=== PATIENT | female | born 1940 | race Caucasian/White ===

== ENCOUNTER 2017-03-04 13:35 | Inpatient (IN) ==
[2017-03-04 14:18] LABS: Basophils % 0.3 %; Eosinophils # 0.1 K/mcL (0.0-0.6); Hematocrit 27.6 % (35.3-44.9); Immature Granulocytes % 0.5 % (0-4); Lymphocytes # 1.6 K/mcL (0.6-4.6); Lymphocytes % 25.7 %; Mean Corpuscular HGB Conc 26.4 g/dL (31.6-35.5); Mean Corpuscular Hemoglobin 17.6 pg (28.0-33.3); Mean Corpuscular Volume 66.5 fL (83.0-100.0); Mean Platelet Volume 10.4 fL (9.4-12.4); Monocytes # 0.4 K/mcL (0.0-1.3); Monocytes % 7.1 %; Neutrophils # 4.1 K/mcL (1.6-8.9); Platelet Count 267 K/mcL (140-400); Red Blood Count 4.15 M/mcL (3.82-4.97); Red Cell Distribution Width 17.6 % (11.5-14.5); Segmented Neutrophils % 65.4 %
[2017-03-04 14:25] LABS: BUN/Creatinine Ratio 11 (6-26); Blood Urea Nitrogen 9 mg/dL (7-20); Calcium 9.6 mg/dL (8.6-10.8); Carbon Dioxide 28 mEq/L (19-29); Chloride 107 mEq/L (98-109); Glucose 106 mg/dL (70-99); Osmolality,Calculated 291 (280-300); Potassium 4.2 mEq/L (3.5-4.5); Sodium 141 mEq/L (136-145); eGFR For African Americans > 60 (> 60); eGFR For Non-African Americans > 60 (> 60)
[2017-03-04 14:33] LABS: Hemoglobin 7.3 g/dL (11.5-15.4)
[2017-03-04] MEDS ORDERED: Dexamethasone 4 MG/ML VIAL IVP ONE (15:28)
[2017-03-04] MEDS ORDERED: Azithromycin 500 MG in D5% in Water 250 ML IVPB ONE (15:28)
[2017-03-04] MEDS ORDERED: Ipratropium/Albuterol Neb 3 ML IH ONE (15:28)
--- NOTE | 2017-03-04 15:31 | Emergency Department Note ---
Disposition Clinical Impression: Acute exacerbation of chronic obstructive airways disease Community acquired pneumonia Qualifiers: Laterality: unspecified laterality Qualified Code(s): J18.9 - Pneumonia, unspecified organism Anemia Qualifiers: Anemia type: other cause Other causes of anemia: other cause, not classified Qualified Code(s): D64.89 - Other specified anemias GI bleed Qualifiers: GI bleed type/associated pathology: unspecified gastrointestinal hemorrhage type Qualified Code(s): K92.2 - Gastrointestinal hemorrhage, unspecified Disposition: Admitted As Inpatient Condition: Fair Referrals: NONE,PCP [Primary Care Provider] - Forms: ED Satisfaction Letter SOB HPI - General Chief Complaint: ED Shortness of Breath/Dyspnea Stated Complaint: SOB Time Seen by Provider: 03/04/17 14:57 Source: patient, family Limitations: no limitations Nursing Notes Reviewed: Yes Vital Signs Reviewed: Yes - History of Present Illness Presents with shortness of breath which is long-standing but worse last 1-1/2 weeks and is constant and is worse with exertion and she does have an associated cough productive of yellow sputum. No chest pain, back pain, abdominal pain. Does have lower extremity edema. No pain or numbness. Does have some sneezing. She denies history of heart failure. Social history: She is a smoker, is here with her daughter - Related Data Home Medications Medication Instructions Recorded Confirmed Acetaminophen [Tylenol] 500 mg PO Q6H PRN 03/04/17 03/04/17 Albuterol Neb [Proventil Neb] 2.5 mg IH Q6H PRN 03/04/17 03/04/17 Albuterol Sulfate [Proair Hfa] 2 puff IH Q4H PRN 03/04/17 03/04/17 Aspirin Enteric Coated [Aspirin EC] 81 mg PO DAILY 03/04/17 03/04/17 Atorvastatin [Lipitor] 40 mg PO HS 03/04/17 03/04/17 Cholecalciferol (D-3) [Vitamin D] 2,000 unit PO DAILY 03/04/17 03/04/17 Furosemide [Lasix] 40 mg PO DAILY 03/04/17 03/04/17 Lisinopril [Zestril] 10 mg PO DAILY 03/04/17 03/04/17 Metoprolol [Lopressor] 50 mg PO BID 03/04/17 03/04/17 Potassium Chloride [Klor-Con 10] 10 meq PO DAILY 03/04/17 03/04/17 Rivaroxaban [Xarelto] 20 mg PO DAILY 03/04/17 03/04/17 cloNIDine HCl [Clonidine HCl] 0.2 mg PO BID PRN 03/04/17 03/04/17 Allergies Allergy/AdvReac Type Severity Reaction Status Date / Time No Known Allergies Allergy Verified 03/04/17 13:40 Review of Systems: Constitutional: No fever Vision: No blurred vision ENT: No rhinorrhea Respiratory: + cough Allergic: No allergies : No blood in urine GI: No blood in stool Hematologic: No bruising Dermatologic: No skin rash Musculoskeletal: No pain in the extremities Neuro: No numbness of the extremities Past Medical History - Past Medical History Medical history: Reports: arthritis, atrial fibrillation, cancer, hyperlipidemia , hypertension Psychiatric history: Reports: no psych history - Social History Smoking Status: Current every day smoker Smokeless Tobacco Status: No Alcohol use: Reports: none Drug use: Reports: none Physical Exam CONSTITUTIONAL: Alert and oriented X3, well-nourished, well appearing, in no apparent distress HEAD: Normocephalic; atraumatic. EYES: PERRL, no scleral icterus. NOSE: The nose is normal in appearance without rhinorrhea RESP: Normal chest excursion with respiration; breath sounds with decreased breath sounds bilaterally CARD: Regular rhythm, without murmurs, rub or gallop ABD: Non-distended; non-tender, soft,without rigidity, rebound or guarding SKIN: Normal for age and race; warm and dry; no apparent lesions EXTREMITIES: Pulses are 2 plus and equal times 4 extremities,with 2+ symmetric bilateral lower extremity pretibial pitting edema which is symmetric, no erythema or signs of infection, dorsal pedal pulses 1+ and equal 2. Feet are warm and pink - General Limitations: no limitations General appearance: alert Course Vital Signs Temperature 97.7 F 03/04/17 13:36 Pulse Rate 83 03/04/17 13:36 Respiratory Rate 20 03/04/17 13:36 Blood Pressure 152/80 03/04/17 13:36 O2 Sat by Pulse Oximetry 93 03/04/17 13:36 Temperature 97.7 F 03/04/17 13:36 Pulse Rate 81 03/04/17 16:00 Respiratory Rate 22 03/04/17 16:11 Blood Pressure 127/69 08/28/17 16:00 O2 Sat by Pulse Oximetry 96 03/04/17 16:11 Oxygen Delivery Oxygen Delivery Nasal Cannula Shortness of Breath/Dyspnea - [facility] Narrative Medical decision making narrative: Patient does have symptoms consistent with a COPD exacerbation and the x-ray suggestive of a possible infiltrates and the patient will be started on antibiotics, DuoNeb, Decadron. Also does have the new onset of anemia and she does not have any abdominal or back pain or evidence to suggest a sudden onset of bleeding. Rectal exam is being done at this time. Patient will be admitted to the hospital. Type and screen will be ordered. 1531 I did review the EKG showing atrial fibrillation with a rate of [address] and T-wave changes. Patient was admitted to the hospital. The hospitalist is paged. Symptoms consistent with COPD exacerbation. 1553 Chest x-ray does show a likely infiltrate in the patient is treated with Rocephin 2 g and Zithromax 500 mg. She has not recently been in a health care facility. The hospitalist has been paged [phone] Pt is anemic with heme positive stool. Type and screen is ordered. 1718 I did speak with Dr. Farrell except the patient for admission. I will consult GI Dr. Silverman to see the pt in the AM due to the anemia and heme positive stool 1738 - Medical Records Medical records reviewed: Yes I reviewed the patient's medical records. - Lab Data Lab results reviewed: Yes I reviewed the patient's lab results. Result diagrams: 03/04/17 14:02 03/04/17 14:02 Lab Results 03/04/17 03/04/17 03/04/17 Range/Units 14:02 14:02 14:02 WBC 6.2 (4.3-11.1) K/mcL RBC 4.15 (3.82-4.97) M/mcL Hgb 7.3 L (11.5-15.4) g/dL Hct 27.6 L (35.3-44.9) % MCV 66.5 L (83.0-100.0) fL MCH 17.6 L (28.0-33.3) pg MCHC 26.4 L (31.6-35.5) g/dL RDW 17.6 H (11.5-14.5) % Plt Count 267 (140-400) K/mcL MPV 10.4 (9.4-12.4) fL Immature Gran % 0.5 (0-4) % Seg Neutrophils % 65.4 % Lymphocytes % 25.7 % Monocytes % 7.1 % Eosinophils % 1.0 % Basophils % 0.3 % Neutrophils # 4.1 (1.6-8.9) K/mcL Lymphocytes # 1.6 (0.6-4.6) K/mcL Monocytes # 0.4 (0.0-1.3) K/mcL Eosinophils # 0.1 (0.0-0.6) K/mcL Basophils # 0.0 (0.0-0.2) K/mcL Sodium 141 (136-145) mEq/L Potassium 4.2 (3.5-4.5) mEq/L Chloride 107 (98-109) mEq/L Carbon Dioxide 28 (19-29) mEq/L BUN 9 (7-20) mg/dL Creatinine 0.79 (0.57-1.11) mg/dL Est GFR ( Amer) > 60 (> 60) Est GFR (Non-Af Amer) > 60 (> 60) BUN/Creatinine Ratio 11 (6-26) Glucose 106 H (70-99) mg/dL Calculated Osmolality 291 (280-300) Lactic Acid 1.4 (0.5-2.2) mmol/L Calcium 9.6 (8.6-10.8) mg/dL Troponin I (0-0.03) ng/mL B-Natriuretic Peptide (0-100) pg/mL Stool Occult Blood (Negative) Blood Type Antibody Screen 03/04/17 03/04/17 03/04/17 Range/Units 14:02 14:02 15:00 WBC (4.3-11.1) K/mcL RBC (3.82-4.97) M/mcL Hgb (11.5-15.4) g/dL Hct (35.3-44.9) % MCV (83.0-100.0) fL MCH (28.0-33.3) pg MCHC (31.6-35.5) g/dL RDW (11.5-14.5) % Plt Count (140-400) K/mcL MPV (9.4-12.4) fL Immature Gran % (0-4) % Seg Neutrophils % % Lymphocytes % % Monocytes % % Eosinophils % % Basophils % % Neutrophils # (1.6-8.9) K/mcL Lymphocytes # (0.6-4.6) K/mcL Monocytes # (0.0-1.3) K/mcL Eosinophils # (0.0-0.6) K/mcL Basophils # (0.0-0.2) K/mcL Sodium (136-145) mEq/L Potassium (3.5-4.5) mEq/L Chloride (98-109) mEq/L Carbon Dioxide (19-29) mEq/L BUN (7-20) mg/dL Creatinine (0.57-1.11) mg/dL Est GFR ( Amer) (> 60) Est GFR (Non-Af Amer) (> 60) BUN/Creatinine Ratio (6-26) Glucose (70-99) mg/dL Calculated Osmolality (280-300) Lactic Acid (0.5-2.2) mmol/L Calcium (8.6-10.8) mg/dL Troponin I 0.00 (0-0.03) ng/mL B-Natriuretic Peptide 486 H (0-100) pg/mL Stool Occult Blood Positive A (Negative) Blood Type Antibody Screen 03/04/17 Range/Units 15:56 WBC (4.3-11.1) K/mcL RBC (3.82-4.97) M/mcL Hgb (11.5-15.4) g/dL Hct (35.3-44.9) % MCV (83.0-100.0) fL MCH (28.0-33.3) pg MCHC (31.6-35.5) g/dL RDW (11.5-14.5) % Plt Count (140-400) K/mcL MPV (9.4-12.4) fL Immature Gran % (0-4) % Seg Neutrophils % % Lymphocytes % % Monocytes % % Eosinophils % % Basophils % % Neutrophils # (1.6-8.9) K/mcL Lymphocytes # (0.6-4.6) K/mcL Monocytes # (0.0-1.3) K/mcL Eosinophils # (0.0-0.6) K/mcL Basophils # (0.0-0.2) K/mcL Sodium (136-145) mEq/L Potassium (3.5-4.5) mEq/L Chloride (98-109) mEq/L Carbon Dioxide (19-29) mEq/L BUN (7-20) mg/dL Creatinine (0.57-1.11) mg/dL Est GFR ( Amer) (> 60) Est GFR (Non-Af Amer) (> 60) BUN/Creatinine Ratio (6-26) Glucose (70-99) mg/dL Calculated Osmolality (280-300) Lactic Acid (0.5-2.2) mmol/L Calcium (8.6-10.8) mg/dL Troponin I (0-0.03) ng/mL B-Natriuretic Peptide (0-100) pg/mL Stool Occult Blood (Negative) Blood Type A POSITIVE Antibody Screen NEGATIVE - Radiology Data Radiology results reviewed: Yes I reviewed the patient's radiology results.
[2017-03-04] MEDS ORDERED: Naloxone 0.4 MG/ML INJ IVP PRN (16:53)
[2017-03-04] MEDS ORDERED: Ondansetron ODT 4 MG TAB.RAPDIS SL PRN (16:53)
[2017-03-04] MEDS ORDERED: Acetaminophen 325 MG TABLET PO PRN (16:53)
[2017-03-04] MEDS ORDERED: Pantoprazole 40 MG VIAL IVP ONE (17:23)
[2017-03-04] MEDS ORDERED: MethylPREDNISolone 40 MG/ML VIAL IVP ONE (17:28)
[2017-03-04] MEDS ORDERED: Ipratropium/Albuterol Neb 3 ML IH SCH (17:30)
--- NOTE | 2017-03-04 18:06 | Internal Med History&Physical ---
Date of Encounter: 03/04/17 Time of Encounter: 17:56 Assessment and Plan (1) GI bleed Current visit: Yes Status: Acute Hemoglobin is above 11. Noted that patient's hemoglobin today is 7.2. Stool occult blood is positive. Patient does not have any /overt/occult GI bleed. Plan: -Admit as inpatient. Reason for inpatient admission: Acute gastrointestinal bleed, needs close monitoring, blood transfusion, intravenous medications and close monitoring -IV PPI 40 mg every 12 hours. -IV fluids normal saline 70 mL/h. -Consult gastroenterology: Spoke with level vial setter, possible EGD tomorrow. -For DVT prophylaxis in terms of pharmacological prophylaxis. SCD provided -Serial hemoglobin/hematocrit Qualifiers: GI bleed type/associated pathology: unspecified gastrointestinal hemorrhage type Qualified Code(s): K92.2 - Gastrointestinal hemorrhage, unspecified (2) Acute exacerbation of chronic obstructive airways disease Current visit: Yes Status: Acute Possible acute exacerbation of her COPD: Known to have a long-standing COPD. Acute exacerbation is likely secondary to underlying GI bleed Plan: IV antibiotics IV steroids Inhaled bronchodilators. (3) Anemia Current visit: Yes Status: Acute Anemia is likely secondary to GI blood loss. Qualifiers: Anemia type: other cause Other causes of anemia: other cause, not classified Qualified Code(s): D64.89 - Other specified anemias (4) DVT prophylaxis Current visit: Yes Status: Acute SCD Medical management/decision making: This patient has a moderate to severe risk of worsening clinically in spite of being on appropriate medication. Internal Medicine - H&P: HPI Chief complaint: Shortness of breath Admitted From: Emergency Dept Plans for Post Hospital Care: Home History of present illness: 76/F PCP: Brief PMH: Hypertension, atrial fibrillation on anticoagulation, COPD, dyslipidemia, coronary artery disease History of present illness: Patient started worsening shortness of breath for past 72-96 hours. She started gradually getting worse in terms of cough along with clear sputum production. Patient was also complaining of diffuse abdominal pain. Patient also complains of occasional back pain. Patient's symptoms started worsening in last 24 hours. Patient also has occasional intermittent left-sided nonradiating chest pain. Patient denies hematemesis, hemoptysis, bleeding per rectum, nausea, vomiting, dizziness or diarrhea. Patient tried to contact her primary care provider but was not able to get a early appointment. This is the reason patient decided to come to the hospital. Patient's daughter works as a shiatsu therapist for specialist from this hospital. Workup in the emergency room: Patient was evaluated in the emergency room. Routine labs were performed. Routine imaging was carried out. Her stool occult blood was positive. Noted that patient has a more than 4 g of drop in hemoglobin. Reason for admission: Acute exacerbation of her COPD associated with gastrointestinal bleed. Family history: Noncontributory Past Med Surg Social Fam HX - Past Medical History Medical history: arthritis, atrial fibrillation, cancer, hyperlipidemia, hypertension Psychiatric history: no psych history - Social History Smoking Status: Current every day smoker Smokeless Tobacco Status: No Alcohol use: none Drug use: none Internal Medicine - H&P: Meds Acetaminophen [Tylenol] 500 mg PO Q6H PRN 03/04/17 [History] Albuterol Neb [Proventil Neb] 2.5 mg IH Q6H PRN 03/04/17 [History] Albuterol Sulfate [Proair Hfa] 2 puff IH Q4H PRN 03/04/17 [History] Aspirin Enteric Coated [Aspirin EC] 81 mg PO DAILY 03/04/17 [History] Atorvastatin [Lipitor] 40 mg PO HS 03/04/17 [History] Cholecalciferol (D-3) [Vitamin D] 2,000 unit PO DAILY 03/04/17 [History] Furosemide [Lasix] 40 mg PO DAILY 03/04/17 [History] Lisinopril [Zestril] 10 mg PO DAILY 03/04/17 [History] Metoprolol [Lopressor] 50 mg PO BID 03/04/17 [History] Potassium Chloride [Klor-Con 10] 10 meq PO DAILY 03/04/17 [History] Rivaroxaban [Xarelto] 20 mg PO DAILY 03/04/17 [History] cloNIDine HCl [Clonidine HCl] 0.2 mg PO BID PRN 03/04/17 [History] 3 Allergy/AdvReac Type Severity Reaction Status Date / Time No Known Allergies Allergy Verified 03/04/17 13:40 All Systems PM: A 10-system review of systems was performed and is negative for pertinent findings except as documented above in the HPI. - Constitutional Constitutional: no chills, no fever(s), no night sweats - EENT Eyes: no change in vision, no discharge, no pain, no photophobia Ears: no ear discharge, no ear pain, no tinnitus Nose, mouth and throat: no dysphagia, no nasal discharge, no neck pain, no sore throat - Cardiovascular Cardiovascular ROS IM: no chest pain, no diaphoresis, no dyspnea, no lightheadedness, no palpitations, no syncope - Respiratory Respiratory: no cough, no dyspnea, no wheezing, no excessive phlegm production - Gastrointestinal Gastrointestinal: no abdominal pain, no diarrhea, no hematemesis, no hematochezia, no melena, no nausea, no vomiting - Genitourinary Genitourinary: no change in urinary stream, no dysuria, no flank pain, no hematuria - Musculoskeletal Musculoskeletal ROS IM: no numbness, no tingling - Integumentary Integumentary IM: no rash, no unusual bruising - Neurological Neurological ROS: no confusion, no convulsions, no focal weakness, no numbness, no tingling, no tremor(s) - Hematologic/Lymphatic Hematologic/Lymphatic: no easy bruising - Constitutional Vitals: Temp Pulse Resp BP Pulse Ox 97.7 F 76 20 125/72 93 03/04/17 13:36 03/04/17 17:30 03/04/17 17:30 03/04/17 17:30 03/04/17 17:30 General appearance: Present: A&O X 3, pleasant, no acute distress, answers questions appropriately - Head Head exam: Present: atraumatic, normocephalic - Eye Eye exam: Present: PERRL, conjuntiva pink, sclera anicteric Pupils: Present: PERRL - Neck Neck exam general surgery: Present: supple, trachea midline. Absent: lymphadenopathy - Respiratory Respiratory exam: Present: CTAB. Absent: accessory muscle use, rales, rhonchi, wheezes - Cardiovascular Cardiovascular exam: Present: RRR, +S1, +S2. Absent: diastolic murmur, gallop, rubs, systolic murmur - GI/Abdominal GI/Abdominal exam: Present: normal bowel sounds, soft, no peritoneal signs. Absent: distended, tenderness - Extremities Exam Extremities exam: Present: warm, radial pulses palpable and symmetrical. Absent : calf tenderness, cyanotic, pedal edema - Neurological Exam Neurological exam: Present: CN II-XII intact, oriented X3, no focal deficits. Absent: pronater drift, facial droop, speech deficit - Skin Skin exam: Present: dry, intact Internal Med - H&P Results - Labs CBC & Chem 7: 03/04/17 14:02 03/04/17 14:02
[2017-03-04] MEDS: Pantoprazole 40 MG VIAL IVP SCH (19:07)
[2017-03-04] MEDS: Ipratropium/Albuterol Neb 3 ML IH SCH ×2 (20:53→23:40)
[2017-03-04] MEDS ORDERED: 0.9 % Sodium Chloride 250 ML ONE ×2 (20:58→23:29)
[2017-03-04] MEDS: MethylPREDNISolone 40 MG/ML VIAL IVP SCH (23:31)
[2017-03-05 03:21] LABS: Red Cell Distribution Width 19.1 % (11.5-14.5)
[2017-03-05 03:22] LABS: Hematocrit 29.8 % (35.3-44.9); Hemoglobin 8.7 g/dL (11.5-15.4); Immature Granulocytes % 0.4 % (0-4); Lymphocytes # 1.8 K/mcL (0.6-4.6); Lymphocytes % 36.3 %; Mean Corpuscular HGB Conc 29.2 g/dL (31.6-35.5); Mean Corpuscular Hemoglobin 19.9 pg (28.0-33.3); Mean Platelet Volume 9.9 fL (9.4-12.4); Monocytes # 0.1 K/mcL (0.0-1.3); Platelet Count 200 K/mcL (140-400); Red Blood Count 4.38 M/mcL (3.82-4.97); Segmented Neutrophils % 62.3 %
[2017-03-05 03:24] LABS: Neutrophils # 3.1 K/mcL (1.6-8.9)
[2017-03-05 03:34] LABS: BUN/Creatinine Ratio 13 (6-26); Blood Urea Nitrogen 11 mg/dL (7-20); Calcium 9.5 mg/dL (8.6-10.8); Carbon Dioxide 26 mEq/L (19-29); Chloride 105 mEq/L (98-109); Glucose 154 mg/dL (70-99); Osmolality,Calculated 292 (280-300); Sodium 140 mEq/L (136-145); eGFR For African Americans > 60 (> 60); eGFR For Non-African Americans > 60 (> 60)
[2017-03-05 03:51] LABS: Anisocytosis 1+ (Not Present); Hypochromasia Present (Not Present); Microcytosis Present (Not Present); Platelet Estimate Normal (Normal); Poikilocytosis 1+ (Not Present); Polychromasia 1+ (Not Present); Reactive Lymphocytes Present (Not Present)
[2017-03-05] MEDS: Ipratropium/Albuterol Neb 3 ML IH SCH ×6 (04:25→23:15)
[2017-03-05] MEDS: Pantoprazole 40 MG VIAL IVP SCH ×2 (05:03→17:11)
[2017-03-05] MEDS: MethylPREDNISolone 40 MG/ML VIAL IVP SCH (08:13)
[2017-03-05] MEDS ORDERED: Nicotine 7 MG PATCH.TD24 TD PRN (08:55)
--- NOTE | 2017-03-05 09:56 | Pulmonology Consult Note ---
<Génesis Martin - Last Filed: 03/05/17 11:27> Date of Encounter: 03/05/17 Time of Encounter: 11:15 History of Present Illness Chief complaint: difficulty breathing History of present illness: 76yo female that presented to the ED complaining of shortness of breathe for 1 week. PMH of COPD, A.fib, HTN, HLD, breast cancer. She stated that it continued to get worse and nothing made it better even though she took her regular medications. She stated that moving and exerting herself made it worse to the point that she was not able to walk around in her daily routine. She could not get into see her PCP so she decided to come to the hospital. She is a current smoker 1ppd/ 45yrs. She is a former patient of Dr. Villela but has not followed up with him in years. She admitted to coughing clear to white sputum, wheezing, palpitations, leg swelling. Denied chest pain, fever, chills, nausea, vomiting, abdominal pain, sick contact, travel, hemoptysis, melena, hematechezia. Medications and Allergies Acetaminophen [Tylenol] 500 mg PO Q6H PRN 03/04/17 [History] Albuterol Neb [Proventil Neb] 2.5 mg IH Q6H PRN 03/04/17 [History] Albuterol Sulfate [Proair Hfa] 2 puff IH Q4H PRN 03/04/17 [History] Aspirin Enteric Coated [Aspirin EC] 81 mg PO DAILY 03/04/17 [History] Atorvastatin [Lipitor] 40 mg PO HS 03/04/17 [History] Cholecalciferol (D-3) [Vitamin D] 2,000 unit PO DAILY 03/04/17 [History] Furosemide [Lasix] 40 mg PO DAILY 03/04/17 [History] Lisinopril [Zestril] 10 mg PO DAILY 03/04/17 [History] Metoprolol [Lopressor] 50 mg PO BID 03/04/17 [History] Potassium Chloride [Klor-Con 10] 10 meq PO DAILY 03/04/17 [History] Rivaroxaban [Xarelto] 20 mg PO DAILY 03/04/17 [History] cloNIDine HCl [Clonidine HCl] 0.2 mg PO BID PRN 03/04/17 [History] 3 Allergy/AdvReac Type Severity Reaction Status Date / Time No Known Allergies Allergy Verified 03/04/17 13:40 All Systems: A 10-system review of systems was performed and is negative for pertinent findings except as documented above in the HPI. - Constitutional Constitutional: weakness, no chills, no fever(s), no weight loss - Cardiovascular Cardiovascular: dyspnea, irregular heart rhythm, leg edema, palpitations, no chest pain, no syncope - Respiratory Respiratory: cough, dyspnea, dyspnea on exertion, wheezing, excessive phlegm production (clear and white), no hemoptysis - Gastrointestinal Gastrointestinal: no abdominal pain, no hematemesis, no melena, no nausea, no vomiting - Genitourinary Genitourinary: no hematuria, no urinary frequency Physical Examination Vital Signs: Vital Signs, Last 4 Hours Temp Pulse Resp BP Pulse Ox 03/05/17 10:32 98.2 F 105 18 132/71 97 03/05/17 08:24 99 03/05/17 07:46 18 99 General appearance: no acute distress, alert Eyes: nonicteric ENT: oropharynx moist Neck: supple Effort: normal Auscultation: left: egophony (left base), bilateral: diminished breath sounds ( decreased breathe sounds), wheezes (none) Tactile fremitus: bilateral: diminished (decreased tactile fremitis lower lobes) Cardiovascular: irregular rhythm Gastrointestinal: normoactive bowel sounds, soft, non-tender Integumentary: normal Extremities: no cyanosis, no clubbing, pulses normal normal mental status affect normal Results - Laboratory Findings CBC and BMP: 03/05/17 03:15 03/05/17 03:15 Abnormal lab findings: Abnormal lab results Hgb 8.7 g/dL (11.5-15.4) L 03/05/17 03:15 Hct 29.8 % (35.3-44.9) L 03/05/17 03:15 MCV 68.0 fL (83.0-100.0) L 03/05/17 03:15 MCH 19.9 pg (28.0-33.3) L 03/05/17 03:15 MCHC 29.2 g/dL (31.6-35.5) L 03/05/17 03:15 RDW 19.1 % (11.5-14.5) H 03/05/17 03:15 Reactive Lymphocytes Present (Not Present) A 03/05/17 03:15 Polychromasia 1+ (Not Present) A 03/05/17 03:15 Hypochromasia Present (Not Present) A 03/05/17 03:15 Poikilocytosis 1+ (Not Present) A 03/05/17 03:15 Anisocytosis 1+ (Not Present) A 03/05/17 03:15 Microcytosis Present (Not Present) A 03/05/17 03:15 Glucose 154 mg/dL (70-99) H 03/05/17 03:15 Iron 13 mcg/dL (50-170) L 03/04/17 14:02 % Saturation 3 % (15-50) L 03/04/17 14:02 B-Natriuretic Peptide 486 pg/mL (0-100) H 03/04/17 14:02 Stool Occult Blood Positive (Negative) A 03/04/17 15:00 - Clinical Findings Intake & Output: Intake & Output 03/04/17 03/05/17 03/05/17 23:59 07:59 15:59 Intake Total 300 / 650 300 / 300 0 / 0 Output Total 0 / 0 Balance 300 / 650 300 / 300 0 / 0 Weight 75.7 kg Consult Discharge Plan - Plan Referrals: Joan Jovel, NETWORK ARCHITECT MANAGER [Advanced Practice Nurse] - 03/15/17 1:30 pm (Please follow up as schedule...) <Skyla Villela - Last Filed: 03/05/17 19:56> Date of Encounter: 03/05/17 Assessment and Plan (1) Acute exacerbation of chronic obstructive airways disease Current Visit: Yes Status: Acute since patient has COPD exacerbation I would recommend to treat the acute events and when stable and she can have her procedure especially since it is nontender urgent. I would recommend to taper her steroid due to risk of bleeding with systemic steroid and on bronchodilators then she can follow-up as outpatient. She will need PFT as outpatient. This was discussed with the primary team. Thank you for the consultation. (2) GI bleed Current Visit: Yes Status: Acute discussed with quality control manager and we both agreed this can be done more an elective type procedure. Qualifiers: GI bleed type/associated pathology: unspecified gastrointestinal hemorrhage type Qualified Code(s): K92.2 - Gastrointestinal hemorrhage, unspecified (3) Tobacco abuse Current Visit: Yes Status: Chronic the patient statedshe will quit smoking. History of Present Illness Reason for consult: other (Pulmonary clearance) Past Med Surg Social Fam HX - Past Medical History Medical history: arthritis, atrial fibrillation, cancer, hyperlipidemia, hypertension Psychiatric history: no psych history - Social History Smoking Status: Current every day smoker Smokeless Tobacco Status: No Alcohol use: none Drug use: none - Family History Mother Family Member Ethnicity: Non- Living Status: Cause of : stroke Father Family Member Ethnicity: Non- Living Status: Cause of : [place] Hx Family Cardiac Disorders: Yes All Systems: A 10-system review of systems was performed and is negative for pertinent findings except as documented above in the HPI. Physical Examination Vital Signs: Vital Signs, Last 4 Hours Temp Pulse Resp BP Pulse Ox 03/05/17 08:24 99 03/05/17 07:46 18 99 03/05/17 06:59 97.7 F 105 18 148/74 94 Results - Laboratory Findings CBC and BMP: 03/05/17 03:15 03/05/17 03:15 Abnormal lab findings: Abnormal lab results Hgb 8.7 g/dL (11.5-15.4) L 03/05/17 03:15 Hct 29.8 % (35.3-44.9) L 03/05/17 03:15 MCV 68.0 fL (83.0-100.0) L 03/05/17 03:15 MCH 19.9 pg (28.0-33.3) L 03/05/17 03:15 MCHC 29.2 g/dL (31.6-35.5) L 03/05/17 03:15 RDW 19.1 % (11.5-14.5) H 03/05/17 03:15 Reactive Lymphocytes Present (Not Present) A 03/05/17 03:15 Polychromasia 1+ (Not Present) A 03/05/17 03:15 Hypochromasia Present (Not Present) A 03/05/17 03:15 Poikilocytosis 1+ (Not Present) A 03/05/17 03:15 Anisocytosis 1+ (Not Present) A 03/05/17 03:15 Microcytosis Present (Not Present) A 03/05/17 03:15 Glucose 154 mg/dL (70-99) H 03/05/17 03:15 B-Natriuretic Peptide 486 pg/mL (0-100) H 03/04/17 14:02 Stool Occult Blood Positive (Negative) A 03/04/17 15:00 - Clinical Findings Intake & Output: Intake & Output 03/04/17 03/05/17 03/05/17 23:59 07:59 15:59 Intake Total 300 / 650 300 / 300 0 / 0 Output Total 0 / 0 Balance 300 / 650 300 / 300 0 / 0 Weight 75.7 kg - Attending Attestation I examined this patient and my medical decision-making was reviewed with the Resident Physician. I agree with the documented findings, disposition and treatment plan as described except to the extent set forth below. Patient seen and examined. Labs, radiology, chart personally reviewed. Agree with resident's history and physical, assessment, plan with following comments: INDUSTRIAL PIPEFITTER JOURNEYMAN: Patient follows commands, Pulmonary: Acceptable oxygenation and ventilation.I suspect patient has COPD exacerbationskin , please seethe plan and assessment and plan on further discussion as outlined under assessment.
--- NOTE | 2017-03-05 10:02 | Gastroenterology Consult Note ---
<Chanel Griggs - Last Filed: 03/05/17 11:46> Date of Encounter: 03/05/17 Time of Encounter: 10:45 - Assessment and plan (1) Anemia Status: Acute Assessment and plan: r/o GIB, plan for EGD/Cscope with pulmonology clearance. R/O esophagitis, gastritis, duodenitis, PUD, MW tear, AVMs, tumor, polyps, colitis, anorectal pathology (2) GI bleed Status: Acute Assessment and plan: EGD/Colon tomorrow to r/o esophagitis, gastritis, duodenitis, MW tear, AVMs, PUD , tumors, polyps, colitis or anorectal pathology. - Time Spent With Patient Total time spent is greater than 50% in coordination of care (as documented) at patient's floor/unit and/or counseling patient: less than 15 minutes GI History of Present Illness - Data of Consult Patient: new to practice Consult date: 03/05/17 Requesting Physician: Maldonado Cordero, DO - Consult Narrative Reason for consult: anemia, + hemocult History of present illness: Ms. Lombardi is a 76 year old female with PMH of breast cancer s/p mastectomy, CLL , HTN, COPD, hyperlipidemia, afib on Xarelto presented to ED 03/04/17 with SOB. Patient started worsening shortness of breath for past 72-96 hours. She started gradually getting worse in terms of cough along with clear sputum production. Patient was also complaining of diffuse abdominal pain. Patient also complains of occasional back pain. Patient's symptoms started worsening in last 24 hours. Patient also has occasional intermittent left-sided nonradiating chest pain. Patient denies hematemesis, hemoptysis, bleeding per rectum, nausea, vomiting, dizziness or diarrhea. She has had no previous endoscopy procedures. Some complaint of dysphagia with solids. Colonoscopy: None EGD: None Past Med Surg Social Fam HX - Past Medical History Medical history: arthritis, atrial fibrillation, cancer, hyperlipidemia, hypertension Psychiatric history: no psych history - Social History Smoking Status: Current every day smoker Smokeless Tobacco Status: No Alcohol use: none Drug use: none - Family History Mother Family Member Ethnicity: Non- Living Status: Cause of : stroke Father Family Member Ethnicity: Non- Living Status: Cause of : [place] Hx Family Cardiac Disorders: Yes - Gastrointestinal Anticoagulation Use: Xarelto Number of BM Per Day: every day or 2 Gastrointestinal: Present: as per HPI - Constitutional Constitutional: as per HPI - EENT Eyes: as per HPI Ears: Present: as per HPI Nose, mouth and throat: Present: dysphagia - Cardiovascular Cardiovascular ROS: Present: as per HPI - Respiratory Respiratory IM: Present: as per HPI - Neurological ROS Neurological GI: Present: as per HPI - Hematologic/Lymphatic Hematologic/Lymphatic pediatric: Present: as per HPI - Musculoskeletal Musculoskeletal ROS GI: Present: as per HPI - Integumentary Integumentary GI: Present: as per HPI - Psychiatric ROS Psychiatric GI: Present: as per HPI - Endocrine Endocrine IM: Present: as per HPI - Constitutional Vitals: Temp Pulse Resp BP Pulse Ox 97.7 F 105 18 148/74 99 03/05/17 06:59 03/05/17 06:59 03/05/17 07:46 03/05/17 06:59 03/05/17 08:24 General appearance: Present: cooperative, A&O X 3, no acute distress, answers questions appropriately - Head Head exam: Present: atraumatic, normocephalic - Eye Eye exam: Present: normal appearance, sclera anicteric - ENT ENT exam: Present: mucous membranes moist - Neck Neck exam general surgery: Present: normal inspection, trachea midline - Respiratory Respiratory exam: Present: CTAB - Cardiovascular Cardiovascular exam: Present: RRR, +S1, +S2 - GI/Abdominal GI/Abdominal exam: Present: normal bowel sounds, soft, no peritoneal signs - Rectal Rectal exam: Present: deferred - Extremities Exam Extremities exam: Present: warm - Neurological Exam Neurological exam: Present: no focal deficits - Psychiatric Psychiatric exam: Present: normal affect, normal mood - Skin Skin exam: Present: dry, intact, normal color, warm Results - Labs CBC & Chem 7: 03/05/17 03:15 03/05/17 03:15 Labs: Last Result Calcium 9.5 mg/dL (8.6-10.8) 03/05/17 03:15 Troponin I 0.02 ng/mL (0-0.03) 03/04/17 20:01 Stool Occult Blood Positive (Negative) A 03/04/17 15:00 Entire Visit Hgb 8.7 g/dL (11.5-15.4) L 03/05/17 03:15 Hct 29.8 % (35.3-44.9) L 03/05/17 03:15 Consult Discharge Plan - Plan Additional Instructions: Please follow up with your Primary Care Provider within 1 week of discharge. Please resume all your home medications except for your Xarelto. Please stop taking your xarelto until you see and discuss this with your primary care provider Please take your new medications (Symbicort, Spiriva, Aspirin) as prescribed. Please make efforts to reduce and then stop you smoking. You have been provided a prescription of nicotine patches to help with this that you may fill if you want, do not smoke with the nicotine patch on. Please return to the hospital if you experience any new or worsening symptoms. Referrals: Skyla Villela MD [Partnered Physician] - 03/13/17 2:30 pm (Please follow up as schedule..) Joan Jovel CNP [Advanced Practice Nurse] - 03/15/17 1:30 pm (Please follow up as schedule...) Prescriptions: Aspirin 325 mg PO DAILY #30 tablet Budesonide/Formoterol 160/4.5 [Symbicort 160/4.5] 2 puff IH BIDR 30 Days Nicotine Patch [Nicoderm] 7 mg TD DAILY PRN #30 patch PRN Reason: Tobacco Cravings predniSONE [PredniSONE] 40 mg PO DAILY #3 tab Tiotropium [Spiriva] 18 mcg IH DAILY@0700 #1 inh <Mario Powell - Last Filed: 03/13/17 06:27> Date of Encounter: 03/05/17 Time of Encounter: 12:00 - Time Spent With Patient Total time spent is greater than 50% in coordination of care (as documented) at patient's floor/unit and/or counseling patient: GI History of Present Illness - Data of Consult Requesting Physician: Maldonado Cordero DO - Consult Narrative History of present illness: Ms. Lombardi is a 76 year old female - Constitutional Vitals: Temp Pulse Resp BP Pulse Ox 97.5 F L 88 17 126/61 95 03/06/17 12:10 03/06/17 12:10 03/06/17 12:10 03/06/17 12:10 03/06/17 12:10 Results - Labs CBC & Chem 7: 03/06/17 05:50 03/06/17 05:50 Labs: Last Result Calcium 9.2 mg/dL (8.6-10.8) 03/06/17 05:50 Iron 13 mcg/dL (50-170) L 03/04/17 14:02 % Saturation 3 % (15-50) L 03/04/17 14:02 Transferrin 362 mg/dL (180-382) 03/04/17 14:02 Troponin I 0.02 ng/mL (0-0.03) 03/04/17 20:01 Stool Occult Blood Positive (Negative) A 03/04/17 15:00 Entire Visit Hgb 8.5 g/dL (11.5-15.4) L 03/06/17 05:50 Hct 29.4 % (35.3-44.9) L 03/06/17 05:50 - Attending Attestation I have personally interviewed and examined Ms. Lombardi. She has severe COPD with oxygen sats in 80% range off oxygen. She presents with severe anemia. My recommendations are pumonary consultation and optimization prior to any consideration of endoscopy. Thanking you for this consultation
--- NOTE | 2017-03-05 10:04 | Internal Med Progress Note ---
<NhanjensenserenitySalvador ro - Last Filed: 03/05/17 13:08> Date of Encounter: 03/05/17 Time of Encounter: 08:45 - Assessment and plan (1) GI bleed Current Visit: Yes Status: Acute Assessment and plan: present upon admission likely 2/2 to GI bleed Hgb was 11.7 in september Hgb was 7.3 upon admission hemmoccult positive Given 2 units of blood. Hgb this morning 8.7 GI consulted they plan to do EGD, Colonoscopy tomorrow after Pulmonary clearance. Pulmonology has been consulted. continue to hold xarelto, lisinopril. Restarting Metoprolol due to tachycardia and no hypotension during admission. Continue IV PPI Continue IV fluids as needed. continue to monitor H/H Qualifiers: GI bleed type/associated pathology: unspecified gastrointestinal hemorrhage type Qualified Code(s): K92.2 - Gastrointestinal hemorrhage, unspecified (2) Acute exacerbation of chronic obstructive airways disease Current Visit: Yes Status: Acute Assessment and plan: present upon admission likely secondary to GI bleed. Continue IV azithromycin and ceftriaxone day 2 Continue IV steroids day 2 Continue duonebs (3) Anemia Current Visit: Yes Status: Acute Assessment and plan: present upon admission likely 2/2 to GI bleed Hgb was 11.7 in september Hgb was 7.3 upon admission Given 2 units of blood. Hgb this morning 8.7 Qualifiers: Anemia type: other cause Other causes of anemia: other cause, not classified Qualified Code(s): D64.89 - Other specified anemias (4) DVT prophylaxis Current Visit: Yes Status: Acute Assessment and plan: continue SCDs due to GI bleed. - Subjective Interval history: Patient reports improvement in her pedal edema. Patient reports breathing is about the same. She denies Chest Pain, Abd pain, N, V, D. Denies hemoptysis, hematemesis, bleeding per rectum. - Constitutional Vitals: Temp Pulse Resp BP Pulse Ox 97.7 F 105 18 148/74 99 03/05/17 06:59 03/05/17 06:59 03/05/17 07:46 03/05/17 06:59 03/05/17 08:24 General appearance: Present: A&O X 3, pleasant, no acute distress, answers questions appropriately - Head Head exam: Present: atraumatic, normocephalic - Eye Eye exam: Present: PERRL, conjuntiva pink, sclera anicteric Pupils: Present: PERRL - Neck Neck exam general surgery: Present: supple, trachea midline - Respiratory Respiratory exam: Present: decreased breath sounds, CTAB. Absent: rales, rhonchi, wheezes - Cardiovascular Cardiovascular exam: Present: RRR, +S1, +S2. Absent: diastolic murmur, gallop, rubs, systolic murmur - GI/Abdominal GI/Abdominal exam: Present: normal bowel sounds, soft, no peritoneal signs. Absent: distended, tenderness - Extremities Exam Extremities exam: Present: pedal edema (improved), warm. Absent: calf tenderness, cyanotic - Neurological Exam Neurological exam: Present: alert, oriented X3, no focal deficits. Absent: facial droop, speech deficit - Psychiatric Psychiatric exam: Present: normal affect, normal mood - Skin Skin exam: Present: dry, intact Internal Medicine: Result - Labs CBC & Chem 7: 03/05/17 03:15 03/05/17 03:15 Labs: Short CBC 03/05/17 Range/Units 03:15 WBC 4.9 (4.3-11.1) K/mcL Hgb 8.7 L (11.5-15.4) g/dL Hct 29.8 L (35.3-44.9) % Plt Count 200 (140-400) K/mcL Neutrophils # 3.1 (1.6-8.9) K/mcL BMP 03/05/17 03:15 Sodium 140 Potassium 4.0 Chloride 105 Carbon Dioxide 26 BUN 11 Creatinine 0.83 Glucose 154 H Calcium 9.5 Cardiac Enzymes 03/04/17 Range/Units 20:01 Troponin I 0.02 (0-0.03) ng/mL - VTE Documentation of Mechanical Device: Intermittent pneumatic compression device Consult Discharge Plan - Plan Referrals: Joan Jovel CNP [Advanced Practice Nurse] - 03/15/17 1:30 pm (Please follow up as schedule...) <Maldonado Cordero - Last Filed: 03/05/17 19:13> Date of Encounter: 03/05/17 - Assessment and plan (1) Anemia Current Visit: Yes Status: Acute Qualifiers: Anemia type: iron deficiency Iron deficiency anemia type: chronic blood loss Qualified Code(s): D50.0 - Iron deficiency anemia secondary to blood loss (chronic) (2) GI bleed Current Visit: Yes Status: Acute Qualifiers: GI bleed type/associated pathology: unspecified gastrointestinal hemorrhage type Qualified Code(s): K92.2 - Gastrointestinal hemorrhage, unspecified (3) Acute exacerbation of chronic obstructive airways disease Current Visit: Yes Status: Acute (4) HTN (hypertension) Current Visit: Yes Status: Chronic Qualifiers: Hypertension type: essential hypertension Qualified Code(s): I10 - Essential (primary) hypertension (5) HLD (hyperlipidemia) Current Visit: Yes Status: Chronic Qualifiers: Hyperlipidemia type: mixed hyperlipidemia Qualified Code(s): E78.2 - Mixed hyperlipidemia (6) Tobacco abuse Current Visit: Yes Status: Acute - Constitutional Vitals: Temp Pulse Resp BP Pulse Ox 97.9 F 96 16 101/51 94 03/05/17 18:33 03/05/17 18:33 03/05/17 18:33 03/05/17 18:33 03/05/17 18:33 Internal Medicine: Result - Labs CBC & Chem 7: 03/05/17 03:15 03/05/17 03:15 Labs: Short CBC 03/05/17 Range/Units 03:15 WBC 4.9 (4.3-11.1) K/mcL Hgb 8.7 L (11.5-15.4) g/dL Hct 29.8 L (35.3-44.9) % Plt Count 200 (140-400) K/mcL Neutrophils # 3.1 (1.6-8.9) K/mcL BMP 03/05/17 03:15 Sodium 140 Potassium 4.0 Chloride 105 Carbon Dioxide 26 BUN 11 Creatinine 0.83 Glucose 154 H Calcium 9.5 Cardiac Enzymes 03/04/17 Range/Units 20:01 Troponin I 0.02 (0-0.03) ng/mL - Attending Attestation I examined this patient and my medical decision-making was reviewed with the Resident Physician on 03/05/17. I agree with the documented findings, disposition and treatment plan as described except to the extent set forth below. Ms. Lombardi is currently admitted for anemia presumed due to GI bleed and COPD. She remains moderate to high risk due to potential issues with bleeding and respiratory status. Ms. Lombardi feels OK. She is dyspneic with movement. No fever or chills. No overt bleeding noted. H/H seems better with transfusion. Exam alert. Comfortable Mucus membranes dry Heart reg Wheeze noted Abd soft No edema I/P 1 Anemia 2. GI bleed 3. COPD Monitor H/H tonight. Treat COPD. Anticipate d/c tomorrow if stable with further outpatient work up. Further diagnoses and plan as above.
[2017-03-05 11:15] LABS: % Iron Saturation 3 % (15-50); Iron 13 mcg/dL (50-170); Transferrin 362 mg/dL (180-382)
[2017-03-05] MEDS ORDERED: Albuterol 2.5 MG/3 ML NEBULIZER IH PRN (11:28)
[2017-03-05] MEDS: predniSONE 20 MG TABLET PO SCH (16:27)
--- NOTE | 2017-03-05 17:01 | Electrocardiograph Report ---
[address] [address] Test Date: 2017-03-04 Pat Name: Mary Lombardi Department: 105 Room: [facility] Gender: F Senior Hris Analyst: BOBBY : 1940 Requested By: Tobias De Souza Order Number: [id number] Reading MD: Annabella Padilla Measurements Intervals [place] Rate: 81 P: [place]: 0 QRS: 55 QRSD: 92 T: 40 QT: 375 QTc: 412 Interpretive Statements ATRIAL FIBRILLATION MODERATE ST DEPRESSION Electronically Signed On 03-05-2017 16:59:50 EDT by Annabella Padilla
[2017-03-05] MEDS ORDERED: Azithromycin 500 MG in D5% in Water 250 ML IVPB SCH (18:00)
[2017-03-05] MEDS ORDERED: Polyethylene Glycol 3350 255 GM POWDER PO ONE (19:00)
[2017-03-05] MEDS: Budesonide/Formoterol 80/4.5 MDI IH SCH (19:52)
[2017-03-06] MEDS: Ipratropium/Albuterol Neb 3 ML IH SCH ×2 (03:47→07:46)
[2017-03-06] MEDS: Pantoprazole 40 MG VIAL IVP SCH (05:34)
[2017-03-06 06:38] LABS: Hematocrit 29.4 % (35.3-44.9); Hemoglobin 8.5 g/dL (11.5-15.4); Immature Granulocytes % 0.5 % (0-4); Lymphocytes # 1.5 K/mcL (0.6-4.6); Lymphocytes % 11.9 %; Mean Corpuscular HGB Conc 28.9 g/dL (31.6-35.5); Mean Corpuscular Hemoglobin 19.7 pg (28.0-33.3); Mean Corpuscular Volume 68.2 fL (83.0-100.0); Mean Platelet Volume 10.9 fL (9.4-12.4); Monocytes # 0.4 K/mcL (0.0-1.3); Monocytes % 3.6 %; Platelet Count 238 K/mcL (140-400); Red Blood Count 4.31 M/mcL (3.82-4.97); Red Cell Distribution Width 20.4 % (11.5-14.5)
[2017-03-06 06:41] LABS: BUN/Creatinine Ratio 27 (6-26); Blood Urea Nitrogen 23 mg/dL (7-20); Calcium 9.2 mg/dL (8.6-10.8); Carbon Dioxide 27 mEq/L (19-29); Chloride 107 mEq/L (98-109); Glucose 136 mg/dL (70-99); Osmolality,Calculated 300 (280-300); Sodium 142 mEq/L (136-145); eGFR For African Americans > 60 (> 60); eGFR For Non-African Americans > 60 (> 60)
[2017-03-06 06:46] LABS: Neutrophils # 10.3 K/mcL (1.6-8.9)
[2017-03-06] MEDS: Budesonide/Formoterol 80/4.5 MDI IH SCH (07:46)
[2017-03-06 07:55] LABS: Anisocytosis 1+ (Not Present); Hypochromasia Present (Not Present); Platelet Estimate Normal (Normal)
[2017-03-06] MEDS: predniSONE 20 MG TABLET PO SCH (08:12)
[2017-03-06] MEDS ORDERED: Tiotropium 18 MCG inhalation IH SCH (09:00)
--- NOTE | 2017-03-06 09:31 | Discharge Summary ---
<Salvador Metzger - Last Filed: 03/06/17 10:45> Date of Encounter: 03/06/17 Time of Encounter: 08:30 - Discharge Diagnosis (1) GI bleed Priority: Primary Status: Acute Qualifiers: GI bleed type/associated pathology: unspecified gastrointestinal hemorrhage type Qualified Code(s): K92.2 - Gastrointestinal hemorrhage, unspecified (2) Acute exacerbation of chronic obstructive airways disease Priority: Secondary Status: Acute (3) Anemia Priority: Secondary Status: Acute Qualifiers: Anemia type: iron deficiency Iron deficiency anemia type: chronic blood loss Qualified Code(s): D50.0 - Iron deficiency anemia secondary to blood loss (chronic) (4) DVT prophylaxis Priority: Secondary Status: Acute - Discharge Medications Prescriptions: Aspirin 325 mg PO DAILY #30 tablet Budesonide/Formoterol 160/4.5 [Symbicort 160/4.5] 2 puff IH BIDR 30 Days Nicotine Patch [Nicoderm] 7 mg TD DAILY PRN #30 patch PRN Reason: Tobacco Cravings predniSONE [PredniSONE] 40 mg PO DAILY #3 tab Tiotropium [Spiriva] 18 mcg IH DAILY@0700 #1 inh Home Medications: Acetaminophen [Tylenol] 500 mg PO Q6H PRN 03/04/17 [History] Albuterol Neb [Proventil Neb] 2.5 mg IH Q6H PRN 03/04/17 [History] Albuterol Sulfate [Proair Hfa] 2 puff IH Q4H PRN 03/04/17 [History] Atorvastatin [Lipitor] 40 mg PO HS 03/04/17 [History] Cholecalciferol (D-3) [Vitamin D] 2,000 unit PO DAILY 03/04/17 [History] Furosemide [Lasix] 40 mg PO DAILY 03/04/17 [History] Lisinopril [Zestril] 10 mg PO DAILY 03/04/17 [History] Metoprolol [Lopressor] 50 mg PO BID 03/04/17 [History] Potassium Chloride [Klor-Con 10] 10 meq PO DAILY 03/04/17 [History] cloNIDine HCl [Clonidine HCl] 0.2 mg PO BID PRN 03/04/17 [History] Aspirin 325 mg PO DAILY #30 tablet 03/06/17 [Rx] Budesonide/Formoterol 160/4.5 [Symbicort 160/4.5] 2 puff IH BIDR 30 Days [Rx] Nicotine Patch [Nicoderm] 7 mg TD DAILY PRN #30 patch 03/06/17 [Rx] Tiotropium [Spiriva] 18 mcg IH DAILY@0700 #1 inh 03/06/17 [Rx] predniSONE [PredniSONE] 40 mg PO DAILY #3 tab 03/06/17 [Rx] Allergies/Adverse Reactions: 3 Allergy/AdvReac Type Severity Reaction Status Date / Time No Known Allergies Allergy Verified 03/04/17 13:40 Procedures/tests Complete & Pending: CXR: FINDINGS: There is a small left pleural effusion with overlying atelectasis/ infiltrate. No pneumothorax. The cardiomediastinal silhouette is stable. The patient is post right axillary lymph node dissection. No acute osseous abnormality is seen. XR/XR chest 1V portable IMPRESSION: Small left pleural effusion with overlying atelectasis/ pneumonia. Date of admission: 03/04/17 17:50 Primary care physician: PCP NONE Consults: 03/05/17 09:01 Consult to Pulmonology [CONS] Routine Consulting Provider: Pulm Crit Care & Sleep Malena Reason for Consult: Pulmonary Clerance For EGD, and Colonoscopy Time Notified: 09:15 Call Completed: Yes Discharging clinician: Salvador Metzger Anticipated date of discharge: 03/06/17 - Patient Status Disposition: Home, Self-Care Condition: Fair Functional capacity at discharge: uses cane/walker Overall status at discharge: patient is progressing back to baseline - Discharge Instructions Follow Up With: Joan Jovel COMPUTER ENGINEERING TECHNICIAN [Advanced Practice Nurse] - 03/15/17 1:30 pm (Please follow up as schedule...) Additional Instructions: Please follow up with your Primary Care Provider within 1 week of discharge. Please resume all your home medications except for your Xarelto. Please stop taking your xarelto until you see and discuss this with your primary care provider Please take your new medications (Symbicort, Spiriva, Aspirin) as prescribed. Please make efforts to reduce and then stop you smoking. You have been provided a prescription of nicotine patches to help with this that you may fill if you want, do not smoke with the nicotine patch on. Please return to the hospital if you experience any new or worsening symptoms. - Diet and Activity Activity: resume usual activities as tolerated Diet: diabetic diet Interval History: Patient reports improvements in her breathing. Patient eager to go home. Hgb remained steady. Discussed plan with patient and daughter concerning out patient treatment of her COPD to improve her respiratory status for outpatient endoscopy/colonoscopy. Patient and daughter express understanding and agreement with plan. Hospital course: Ms. Lombardi is a 76 year old female c PMHx of COPD, arthritis, atrial fibrillation , cancer, hyperlipidemia, hypertension who reorts to the hospital c/o worsening SOB. Patient was evaluated in the ED and found to be anemic to 7.3 was 11.7 in September. Patient was transfused 2 units of PRBC. Post transfusion his Hgb was 8.7 and remained stable today. Patient was initially treated for COPD exacerbation with IV steroids, IV abx, and Duonebs. ABx were discontinued because it was felt that her exacerbation was due to anemia not infection. GI was consulted for possible scopes as she was hemmocult positive. GI requested a pulmonary consult to determine if she was appropriate for procedures. Pulmonary beleived that her COPD was too severe at this time for her to undergo procedures at this time. Patient was started on symbicort and spiriva with 3 days of steroids. She was sent home on these medications in addition to full dose aspirin while her Xarelto is being held. - Time Spent with Patient Total time spent providing and/or coordinating discharge services: - Constitutional Vitals: Temp Pulse Resp BP Pulse Ox 98.3 F 92 20 143/68 96 03/06/17 07:40 03/06/17 07:40 03/06/17 07:46 03/06/17 07:40 03/06/17 07:46 General appearance: Present: A&O X 3, pleasant, no acute distress, answers questions appropriately - Head Head exam: Present: atraumatic, normocephalic - Eye Eye exam: Present: conjuntiva pink, sclera anicteric - Neck Neck exam general surgery: Present: supple, trachea midline - Respiratory Respiratory exam: Present: decreased breath sounds, CTAB. Absent: accessory muscle use, rales, rhonchi, wheezes - Cardiovascular Cardiovascular exam: Present: RRR, +S1, +S2. Absent: diastolic murmur, gallop, rubs, systolic murmur - GI/Abdominal GI/Abdominal exam: Present: normal bowel sounds, soft, no peritoneal signs. Absent: tenderness - Extremities Exam Extremities exam: Present: warm. Absent: calf tenderness, cyanotic, pedal edema - Neurological Exam Neurological exam: Present: alert, oriented X3. Absent: facial droop, speech deficit - Psychiatric Psychiatric exam: Present: normal affect, normal mood - Skin Skin exam: Present: dry, intact, warm - VTE Documentation of Mechanical Device: Intermittent pneumatic compression device <Maldonado Cordero - Last Filed: 03/06/17 14:41> Date of Encounter: 03/06/17 - Discharge Diagnosis (1) Anemia Status: Acute Qualifiers: Anemia type: iron deficiency Iron deficiency anemia type: chronic blood loss Qualified Code(s): D50.0 - Iron deficiency anemia secondary to blood loss (chronic) (2) GI bleed Status: Acute Qualifiers: GI bleed type/associated pathology: unspecified gastrointestinal hemorrhage type Qualified Code(s): K92.2 - Gastrointestinal hemorrhage, unspecified (3) Acute exacerbation of chronic obstructive airways disease Status: Acute (4) HTN (hypertension) Priority: Secondary Status: Chronic Qualifiers: Hypertension type: essential hypertension Qualified Code(s): I10 - Essential (primary) hypertension (5) HLD (hyperlipidemia) Priority: Secondary Status: Chronic Qualifiers: Hyperlipidemia type: mixed hyperlipidemia Qualified Code(s): E78.2 - Mixed hyperlipidemia (6) Tobacco abuse Priority: Secondary Status: Chronic Date of admission: 03/04/17 17:50 Primary care physician: PCP NONE Consults: 03/05/17 09:01 Consult to Pulmonology [CONS] Routine Consulting Provider: Pulm Crit Care & Sleep Welsh Reason for Consult: Pulmonary Clerance For EGD, and Colonoscopy Time Notified: 09:15 Call Completed: Yes Hospital course: Ms. Lombardi is a 76 year old female - Time Spent with Patient Total time spent providing and/or coordinating discharge services: 39min - Constitutional Vitals: Temp Pulse Resp BP Pulse Ox 97.5 F L 88 17 126/61 95 03/06/17 12:10 03/06/17 12:10 03/06/17 12:10 03/06/17 12:10 03/06/17 12:10 - Attending Attestation I examined this patient and my medical decision-making was reviewed with the Resident Physician on 03/06/17. I agree with the documented findings, disposition and treatment plan as described except to the extent set forth below. Ms. Lombardi is feeling OK at this time. No events overnight. Does not qualify for oxygen. Ready to go home. Exam Alert. Comfortable Heart reg Lungs clear Abd soft No edema Plan D/C today Pt needs wheelchair due to mobility limitations and to assist her in ADLs, self care and getting around in home as a result of her COPD.
[2017-03-06 12:14] VITALS: BP 126/61
[2017-03-06] MEDS ORDERED: Budesonide/Formoterol 160/4.5 MDI IH SCH (22:00)
== END 2017-03-06 15:01 | disposition home or self-care (01) | DRG 378 ==
LOC: 2ANU 13:35 → EMEROO 13:35 → SUATTDRO 17:50 → 2ANU 18:45
PROVIDERS: ADMIT Internal Medicine; ATTEND Internal Medicine